=== PATIENT | female | born 1980 | race Two or more races ===

== ENCOUNTER → 2016-08-06 | Outpatient (CLI) | payer MEDICAID | LOC: CIMAGING 11:22 | PROVIDERS: ATTEND Family Medicine | DX: M46.1 Sacroiliitis, not elsewhere classified (principal) | CPT/HCPCS: 72200-PO ==

== ENCOUNTER 2017-05-30 12:14 | Emergency (ER) | payer MEDICAID ==
[2017-05-30 12:25] VITALS: BP 115/62; PULSE 74; RESP 18; TEMP 98; O2SAT 99
--- NOTE | 2017-05-30 12:42 | EDPHY ---
H & P Time Seen by Provider: 05/30/17 12:41 HPI/ROS: Chief complaint. Pain with urination HPI. 36-year-old female presents emergency department with urinary frequency and burning with urination. Symptoms started last night. She has only pain at the urethra. No flank pain. No vomiting diarrhea or fever. She has had UTIs in the past and this feels the same. ROS Constitutional. no fever/chills, no weakness Eyes. no problems with vision ENT. no sore throat, no nasal drainage Cardiovascular. no chest pain Respiratory. no shortness of breath, no cough Abdominal. no abdominal pain, no nausea/vomiting, no diarrhea . Urinary frequency and dysuria MS. no calf pain/swelling, no neck/back pain, no joint pain Skin. no rash Lymph. no swollen glands Neuro. no headache, no dizziness, no difficulty walking or with speech Past Medical/Surgical History: Healthy Social History: , nonsmoker, no alcohol Smoking Status: Never smoked Physical Exam: General Appearance: Alert pleasant well-developed female mild distress vital signs stable Eyes: Pupils equal and round no pallor or injection. ENT, Mouth: Mucous membranes are moist. Respiratory: There are no retractions, lungs are clear to auscultation. Cardiovascular: Regular rate and rhythm. Gastrointestinal: Abdomen is soft with mild suprapubic tenderness. No flank tenderness Neurological: Awake and alert, sensory and motor exams grossly normal. Skin: Warm and dry, no rashes. Musculoskeletal: Neck is supple nontender. Extremities symmetrical, full range of motion. Psychiatric: Patient is oriented X 3, there is no agitation. Constitutional: Initial Vital Signs Temperature (C) 36.6 C 05/30/17 12:23 Heart Rate 74 05/30/17 12:23 Respiratory Rate 18 05/30/17 12:23 Blood Pressure 115/62 05/30/17 12:23 O2 Sat (%) 99 05/30/17 12:23 O2 Delivery Mode Room Air Allergies/Adverse Reactions: No Known Allergies Allergy (Unverified 05/30/17 12:23) Home Medications: Medication Instructions Recorded Cephalexin [Keflex (*)] 500 mg PO TID #21 cap 05/30/17 Phenazopyridine HCl [Pyridium] 200 mg PO TID #6 tab 05/30/17 Medical Decision Making Procedures: Peridium in the emergency department ED Course/Re-evaluation: Recheck at 12:50 p.m.. Patient and I discussed laboratory findings of urinary tract infection. We discussed treatment plan including criteria for return importance of follow-up and further evaluation. She expresses understanding and agreement Differential Diagnosis: I considered cystitis, urinary tract infection, pyelonephritis - Data Points Laboratory Results: 05/30/17 12:28 Urine Color YELLOW Urine Appearance HAZY Urine pH 7.0 (5.0-7.5) Ur Specific [place] 1.010 (1.002-1.030) Urine Protein NEGATIVE (NEGATIVE) Urine Ketones NEGATIVE (NEGATIVE) Urine Blood TRACE H (NEGATIVE) Urine Nitrate NEGATIVE (NEGATIVE) Urine Bilirubin NEGATIVE (NEGATIVE) Urine Urobilinogen 0.2 EU EU (0.2-1.0) Ur Leukocyte Esterase 1+ H (NEGATIVE) Urine RBC 3-5 /hpf H /hpf (0-3) Urine WBC 15-25 /hpf H /hpf (0-3) Ur Epithelial Cells TRACE /lpf /lpf (NONE-1+) Urine Bacteria TRACE /hpf H /hpf (NONE SEEN) Urine Glucose NEGATIVE (NEGATIVE) Departure - Departure Disposition: Home, Routine, Self-Care Clinical Impression: Urinary tract infection Qualifiers: Urinary tract infection type: site unspecified Hematuria presence: without hematuria Qualified Code(s): N39.0 - Urinary tract infection, site not specified Condition: Good Instructions: Urinary Tract Infection in Women (ED) Additional Instructions: Drink plenty of fluids and stay hydrated. Peridium as needed for discomfort with urination. Cephalexin as antibiotic. Return for flank pain, fever, vomiting. Recheck in 2 days if not improving Referrals: Tulio Medina DO [Primary Care Provider] - As per Instructions Prescriptions: Cephalexin [Keflex (*)] 500 mg PO TID #21 cap Phenazopyridine HCl [Pyridium] 200 mg PO TID #6 tab
[2017-05-30] MEDS ORDERED: PHENAZOPYRIDINE HCL 200 MG TAB PO ONE (12:47)
== END 2017-05-30 13:03 | disposition home or self-care (01) ==
LOC: CED 12:14
DX: N39.0 Urinary tract infection, site not specified (principal); B96.89 Other specified bacterial agents as the cause of diseases classified elsewhere
CPT/HCPCS: 81003-PO; 81015-PO

== ENCOUNTER → 2018-02-15 | Outpatient (CLI) | payer MEDICAID | LOC: CIMAGING 12:27 | PROVIDERS: ATTEND Family Medicine | DX: K80.20 Calculus of gallbladder without cholecystitis without obstruction (principal) | CPT/HCPCS: 76705-PO ==